=== PATIENT | female | born 1990 | race Caucasian/White ===

== ENCOUNTER → 2016-04-14 | Outpatient (CLI) | payer BC ==
--- NOTE | 2016-04-14 13:57 | DX ---
Left Foot , Three History: Medial forefoot pain x1 month, no known trauma, evaluate for stress fracture Findings: No focal osteopenia or sclerosis, periostitis or arthritis is identified. Overall mineraliz ation is normal. There is no erosive change or spurring. Impression: No source for pain identified.
== END ==
LOC: BMCIMAGING 13:32
PROVIDERS: ATTEND Podiatrist Foot & Ankle Surgery
DX: M79.672 Pain in left foot (principal)